=== PATIENT | male | born 1960 | race Caucasian/White ===

== ENCOUNTER 2018-09-17 07:42 | Inpatient (IN) ==
--- NOTE | 2018-08-17 15:33 | PAT Medication Instructions ---
Medication Instructions Date of Service August 17, 2018 Home Medications acetaminophen [Tylenol Extra Strength] 1,000 mg PO Q6H PRN ibuprofen 1,000 mg PO HS PRN multivitamin 1 tab PO QAM niacin 500 mg PO BID omega 5-qlu-wew-fish oil [Fish Oil] 2 cap PO QAM ASK your surgeon for instructions ibuprofen 1,000 mg PO HS PRN STOP taking 2 weeks before surgery omega 2-xws-wyq-fish oil [Fish Oil] 2 cap PO QAM STOP taking 48 hours before surgery niacin 500 mg PO BID DO NOT take the morning of surgery multivitamin 1 tab PO QAM Take morning of surgery With a small sip of water, OTHERWISE NOTHING TO EAT OR DRINK AFTER MIDNIGHT: acetaminophen [Tylenol Extra Strength] 1,000 mg PO Q6H PRN (if needed, may be taken up to four hours before surgery) Other Notes If you have any questions please call us at [phone] or [phone] or [phone] or [phone]
--- NOTE | 2018-08-18 10:36 | Anesthesiology Consultation ---
Date of Service August 18, 2018 Assessment & Plan (1) Encounter for pre-operative examination: Chart Review Chart Review: Acceptable Risk for Surgery and Patient seen in Pre Admission Testing Teaching & Discussion Instructed NPO after midnight before surgery, except medications with 15 cc of water. Medication instructions provided according to the PAT guidelines. History Surgery Operation Date: 09/17/18 10:00 Proposed Procedures p Left Anterior Total Hip Replacement - Sean Sharpe DO Height/Weight Height: 5 ft 9 in Weight: 95.7 kg Allergies Allergy/AdvReac Type Severity Reaction Status Date / Time No Known Allergies Allergy Verified 08/17/18 09:30 Medications Home Medications Medication Instructions Recorded Confirmed Last Taken acetaminophen [Tylenol Extra 1,000 mg PO Q6H PRN 08/17/18 08/17/18 Unknown Strength] ibuprofen 1,000 mg PO HS PRN 08/17/18 08/17/18 Unknown multivitamin 1 tab PO QAM 08/17/18 08/17/18 Unknown niacin 500 mg PO BID 08/17/18 08/17/18 Unknown omega 4-syx-pxc-fish oil [Fish Oil] 2 cap PO QAM 08/17/18 08/17/18 Unknown Past Medical History Medical History Cancer MELANOMA 2003 (LEFT SHOULDER), S/P EXCISION Elevated triglycerides with high cholesterol Osteoarthritis Exercise / Class Metabolic Activity II 4-5 Yardwork/Stairs/Walk up hill (Denies CP or SOB with 1 FOS, limited by hip pain) Past Family History Family History Other No significant family history Past Surgical History Surgical History Ganglion cyst REMOVAL H/O foot surgery RT/LEFT BIG TOE JOINT SURGERY H/O hand surgery RT HAND History of colonoscopy History of skin surgery LEFT SHOULDER (MELANOMA) AND 36 LYMPH NODES REMOVAL History of tooth extraction Past Anesthesia History No Hx of Anesthesia Complications and No Family Hx of Anesthesia Complications History of PONV No Hx of PONV and No Hx of Motion Sickness Social History Smoking Status: Former smoker tobacco type: cigarettes Do You Dip or Chew Tobacco: No (QUIT OVER 30 YEARS AGO) Smoking End Date: QUIT OVER 30 YEARS AGO Hx Alcohol Use: Yes Alcohol type: beer and wine alcohol intake frequency: a few times a week Hx Substance Use: No substance use type: does not use Review of Systems Pt denies any recent chest pain, shortness of breath, palpitations, cough, fever or URI. Physical Exam Vital Signs BP: 156/82 (pt to see PCP prior to surgery, encouraged to discuss HTN at that visit) P: 74bpm SPO2: 96% RA T: 98.7 F R: 16 ENMT Mouth: + dental restorations (one crown) and + chipped teeth (upper L incisor "broken"); no loose teeth Thyromental Distance: > or= 3.5 Finger Breadths (3.5) Mallampati Class: III Neck normal visual inspection; neck extension not limited Respiratory normal respiratory effort Auscultation: lungs clear to auscultation bilaterally Cardiovascular Rate/Rhythm: regular rate and regular rhythm Heart Sounds: no murmur Vessels: no carotid bruit Extremities: no edema Testing Laboratory Results 08/18/18 10:53 08/18/18 10:53 PT 9.9 Seconds (9.0-12.0) 08/18/18 10:53 INR 1.0 (0.9-1.1) 08/18/18 10:53 APTT 27.1 Seconds (21.0-31.0) 08/18/18 10:53 Blood Type AB Negative 08/18/18 10:53 Antibody Screen NEGATIVE 08/18/18 10:53 Electrocardiogram Date: 08/18/18 Findings: + NSR @ (72bpm with PACs) Left axis deviation. iRBBB. Chest X-Ray Date: 08/18/18 FINDINGS: Linear scar formation left mid lung. Postoperative changes left axilla. Lungs are clear. IMPRESSION: Chronic and postoperative changes. No acute process.
--- NOTE | 2018-08-18 11:36 | XRay Report ---
XR chest Pre-admission PA/Lat CLINICAL HISTORY: pat preoperative evaluation COMPARISON STUDY: No previous studies for comparison. FINDINGS: Linear scar formation left mid lung. Postoperative changes left axilla. Lungs are clear. IMPRESSION: Chronic and postoperative changes. No acute process. The above report was generated using voice recognition software. It may contain grammatical, syntax or spelling errors. Electronically signed by: Laron Dawson M.D. 08/18/2018 11:35 AM
[2018-08-18 12:50] LABS: Basophils # (auto) 0.02 K/uL (0-0.2); Basophils % (auto) 0.4 %; Eosinophils # (auto) 0.08 K/uL (0-0.5); Eosinophils % (auto) 1.7 %; Hematocrit (blood only) 40.8 % (42-52); Hemoglobin 14.1 g/dL (14.0-18.0); Immature Granulocytes # (auto) 0.02 K/uL (0.00-0.02); Immature Granulocytes % (auto) 0.4 %; Lymphocytes # (auto) 1.55 K/uL (1.2-3.4); Lymphocytes % (auto) 32.6 %; Mean Corpuscular Hgb Conc 34.6 g/dL (32-36); Mean Corpuscular Volume 92.9 fL (80-100); Mean Platelet Volume 10.3 fL (7.4-10.4); Monocytes # (auto) 0.56 K/uL (0.11-0.59); Monocytes % (auto) 11.8 %; Neutrophils # (auto) 2.53 K/uL (1.4-6.5); Neutrophils % (auto) 53.1 %; Platelet Count 234 K/uL (130-400); RDW Coefficient of Variation 13.3 % (11.5-14.5); RDW Standard Deviation 45.1 fL (36.4-46.3); Red Blood Count 4.39 M/uL (4.7-6.1); White Blood Count 4.76 K/uL (4.8-10.8)
[2018-08-18 13:01] LABS: Partial Thromboplastin Time 27.1 Seconds (21.0-31.0); Prothrombin Time 9.9 Seconds (9.0-12.0)
[2018-08-18 13:02] LABS: BUN Creatinine Ratio 17.1 (10-20); Calcium 8.7 mg/dl (8.5-10.1); Creatinine Clr Calc Pharmacy 103.1 ml/min; Est GFR (African American) 108.7; Est GFR (Non-African American) 93.8; Potassium 4.3 mmol/L (3.5-5.1)
--- NOTE | 2018-09-14 07:29 | History & Physical Report ---
Date of Service September 14, 2018 Assessment & Plan (1) Osteoarthritis of left hip: We will proceed with a left anterior total hip arthroplasty. Postoperatively he will be started on aspirin for DVT prophylaxis and kept overnight in the hospital for postoperative medical management. He plans to use [facility] physical therapy upon discharge. Present on Admission?: Yes History of Present Illness Chief Complaint: Primary osteoarthritis of the left hip Primary Care Provider: Laron Morales MD Pineda is a pleasant 58-year-old male who is been dealing with a 1 year history of increasing left hip and groin pain. X-rays and clinical examination were diagnostic for primary osteoarthritis of the left hip. We have tried cortisone injections which have helped but unfortunately only temporary. After failing conservative treatment, he has elected proceed with a left anterior total hip arthroplasty. Allergies Allergy/AdvReac Type Severity Reaction Status Date / Time No Known Allergies Allergy Verified 08/17/18 09:30 Home Medications Home Medications Medication Instructions Recorded Confirmed Type acetaminophen [Tylenol Extra 1,000 mg PO Q6H PRN 08/17/18 08/17/18 History Strength] ibuprofen 1,000 mg PO HS PRN 08/17/18 08/17/18 History multivitamin 1 tab PO QAM 08/17/18 08/17/18 History niacin 500 mg PO BID 08/17/18 08/17/18 History omega 2-qqn-nqs-fish oil [Fish Oil] 2 cap PO QAM 08/17/18 08/17/18 History Past Med/Surg History Medical History Cancer MELANOMA 2004 (LEFT SHOULDER), S/P EXCISION Elevated triglycerides with high cholesterol Osteoarthritis Surgical History Ganglion cyst REMOVAL H/O foot surgery RT/LEFT BIG TOE JOINT SURGERY H/O hand surgery RT HAND History of colonoscopy History of skin surgery LEFT SHOULDER (MELANOMA) AND 36 LYMPH NODES REMOVAL History of tooth extraction Family History Other No significant family history Social History Preferred Language: Tuval[place] Communication Ability: Effective 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 Beliefs That Will Affect Care: None Current Living Situation: Spouse Other Information That Helps Us Care for You: No Feels Safe at Home: Yes Safety Concerns: Feels Safe At This Time Smoking Status: Former smoker Tobacco Type: cigarettes Do You Dip or Chew Tobacco: No (QUIT OVER 30 YEARS AGO) Smoking End Date: QUIT OVER 30 YEARS AGO Second Hand Exposure: Yes ( A CHILD) Tobacco Cessation Education Requested by Patient: No Hx Alcohol Use: Yes Alcohol type: beer and wine Hx Substance Use: No Review of Systems All systems reviewed & are unremarkable except as noted in HPI & below Physical Exam Constitutional: WD/WN, vitals as above Eyes: PERRL, conjunctivae normal, anicteric sclerae ENMT: external ear and nose normal, oropharynx normal Neck: trachea midline, no thyromegaly Respiratory: normal respiratory effort Cardiovascular: RRR, no murmur, no edema Gastrointestinal (Abdomen): normal bowel sounds, soft, nontender, no hepatosplenomegaly Musculoskeletal: Physical examination of the left hip reveals decreased range of motion with flexion, internal and external rotation. There is significant groin pain with forced internal rotation of the hip his leg lengths are essentially equal. Psychiatric: A+Ox3, euthymic affect Results & Data Diagnostic Findings Radiographs of the left hip and pelvis demonstrate advanced osteoarthritis with joint space narrowing osteophyte formation and ozae-qr-hylx articulation.
[~2018-09-17 07:42] MED LIST: ACETAMINOPHEN 500 MG TAB PO SCH; BUPIVACAINE 0.5 % 5 MG/1 ML PF 10ML VIAL ONE; CEFAZOLIN 2000MG 2,000 MG/15 ML SYR IV SCH; FAMOTIDINE 20 MG TAB PO SCH; GABAPENTIN 300 MG CAP PO SCH; LIDOCAINE HCL 2% 2 ML VIAL/AMP(20MG/ML) INFIL ONE; LR 500ML BOLUS, THEN 15ML/HR IV SCH; LR 60ML/HR IV SCH; MIDAZOLAM HCL 1 MG/ML 2ML VIAL ONE; PROPOFOL IV EMULSION 10 MG/ML 20 ML VIAL IV ONE; ROPIVACAINE 0.5% HCL/PF 150 MG, BUPIVACAINE 0.5% MPF 30 ML, EPINEPHrine 30MG/30ML (OR U... INSTIL SCH; TRANEXAMIC ACID 1,000 MG **IV Intra-op IV SCH; TRANEXAMIC ACID 1,000 MG **IV Pre-op IV SCH; fentaNYL citrate 100 MCG/2 ML VIAL ONE
--- NOTE | 2018-09-17 08:34 | History & Physical Bridge Note ---
Date of Service September 17, 2018 History & Physical Bridge Note I have examined the patient, reviewed the History & Physical and in the interval since the performance of the History & Physical I have noted the following changes of clinical significance: no changes noted
[2018-09-17] MEDS ORDERED: fentaNYL citrate 100 MCG/2 ML VIAL IV PRN (08:39)
[2018-09-17] MEDS ORDERED: ePHEDrine sulfate 50 MG/ML AMP IV PRN (08:39)
[2018-09-17] MEDS ORDERED: ONDANSETRON INJ 2 MG/ML 2 ML VIAL IV PRN ×2 (08:39→13:33)
[2018-09-17] MEDS ORDERED: ATROPINE SULFATE 0.1 MG/ML 10ML SYR IV PRN (08:39)
[2018-09-17] MEDS ORDERED: ORTHO JOINT ANESTHETIC ONE (08:52)
[2018-09-17] MEDS ORDERED: MIDAZOLAM HCL 1 MG/ML 2ML VIAL ONE (09:57)
[2018-09-17] MEDS ORDERED: ONDANSETRON INJ 2 MG/ML 2 ML VIAL ONE (10:16)
[2018-09-17] MEDS ORDERED: PROPOFOL IV EMULSION 10 MG/ML 20 ML VIAL IV ONE (10:56)
--- NOTE | 2018-09-17 12:03 | Operative Report ---
Post Operative Report Pre & Post Diagnosis Operation Date: 09/17/18 10:00 Pre-Op Diagnosis: Left Hip Osteoarthritis Post-Op Diagnosis: Left Hip Osteoarthritis Procedure Operation Date: 09/17/18 10:00 Actual Procedures p Left Anterior Total Hip Arthroplasty--Uncemented(Left) - Sean Sharpe DO Surgeon Sean Sharpe DO Complaint Evaluation Officer Sean Swain PAC Estimated Blood Loss 250 Findings Consistent with Post-Op Diagnosis Specimens Left femoral head Complications none Disposition Disposition: Recovery Room Indications Camron is a pleasant 58-year-old male presented my office with complaints of chronic increasing left hip and groin pain. X-rays and clinical examination were diagnostic for primary osteoarthritis the left hip. After failing conservative treatment, he elected to proceed with a left anterior total hip arthroplasty. Description of Procedure Implants used Biomet Taperloc total hip arthroplasty system with a size 15 standard offset Taperloc stem, a 54 mm G7 cup with 3 screws, an E1 polyethylene liner, a 40 mm ceramic head with a +3 neck. Patient arrived at the hospital for the above procedure. They were seen in the preoperative holding area and the operative extremity was identified and signed. They were given a spinal anesthetic. They were given a preoperative antibiotic and TXA. They were taken back To the operating room and laid on the table in the supine position. The leg was brought out through a Puristst leg positioner. The hip was then prepped and draped in sterile fashion. A timeout was done and the patient in upper extremities properly identified. An anterior approach was used. Dissection was taken down through the fascia and the tensor muscle belly was retracted laterally and the rectus was retracted medially. The circumflex vessels were identified and ligated. The capsule was then incised and tagged for later repair. The femoral neck was then cut and the femoral head was removed. The acetabulum was exposed. Time was spent doing a complete circumferential labral release. Sequential reaming of the acetabulum up to a size 53 reamer was done. Final reamings were done under fluoroscopy to ensure appropriate version. A Biomet 54 mm G7 cup was then impacted into place. I was able to get a fairly good press-fit but not a great press-fit. I decided to place 3 screws for stability. The E1 polyethylene liner was then snapped into place. Surrounding soft tissues were then injected with 100 cc of an orthopedic pain control cocktail. The proximal femur was then exposed. Sequential broaching up to a size 15 broach was done. Off that broach a size 40 head with a +3 neck was trialed. The hip was reduced and fluoroscopic images showed anatomic alignment of the implants in acceptable length. The broach was removed. The final size 15 standard offset Taperloc stem was then impacted into place. A ceramic 40 mm head with a +3 neck was then impacted into place in the hip was reduced. Final fluoroscopic images showed anatomic reduction of the hip. The capsule was then closed with #1 Vicryl suture. A dilute betadyne lavage was then done for 3 minutes. The joint was then irrigated with normal saline solution. The fascia was closed with #1 PDS suture. Skin was closed with 2-0 Vicryl, rodney, and a Glory VAC dressing. The patient was then transferred to a hospital bed and taken to the post anesthesia care unit in stable condition. They tolerated the procedure well. I attest to the content of the Intraoperative Record and any orders documented therein. Any exceptions are noted below.
--- NOTE | 2018-09-17 12:23 | Fluoroscopy Report ---
FL hip LT 1V CLINICAL HISTORY: LEFT ANTERIOR NEISHA COMPARISON STUDY: None. FLUOROSCOPY TIME: 45 seconds. FINDINGS: 2 fluoroscopic spot images of the left hip demonstrate a left total hip arthroplasty. The h ardware is intact. No fracture or dislocation. IMPRESSION: Fluoroscopy provided for left total hip arthroplasty. Electronically signed by: Dave Gibson M.D. 09/17/2018 12:21 PM
--- NOTE | 2018-09-17 12:40 | Anesthesiology Progress Note ---
Date of Service September 17, 2018 Anesthesia Post Procedure Vital Signs Vital Signs: Temp Pulse Resp BP Pulse Ox 09/17/18 12:30 59 L 15 124/70 100 09/17/18 12:20 97.2 F L 61 13 119/76 100 09/17/18 08:21 98.4 F 75 18 145/90 H 95 Transfer of Care Handoff Completed per policy Notes Mental Status: alert / awake / arousable and participated in evaluation Patient Amnestic to Procedure: Yes Nausea / Vomiting: adequately controlled Pain: adequately controlled Airway Patency, RR, SpO2: stable & adequate BP & HR: stable & adequate Hydration State: stable & adequate Neuraxial Anesthesia: was administered and sensory block is resolving Anesthetic Complications: no major complications apparent and Pt Satisfied with anesthetic care
--- NOTE | 2018-09-17 13:03 | XRay Report ---
AP PELVIS, CROSSTABLE LATERAL LEFT HIP History: Left total hip arthroplasty. Degenerative arthritis. Postop. FINDINGS: The patient is status post a left total hip arthroplasty. The hardware is intact. No fractu re or dislocation. Skin rodney are in place. IMPRESSION: Left total hip arthroplasty. No evidence for hardware complication. Electronically signed by: Dave Gibson M.D. 09/17/2018 1:01 PM
[2018-09-17] MEDS ORDERED: BISACODYL 10 MG SUPP PR PRN (13:33)
[2018-09-17] MEDS ORDERED: NALOXONE HCL 0.4 MG/1 ML VIAL/CARP IV PRN (13:33)
[2018-09-17] MEDS ORDERED: HYDROmorphone INJ 0.5 MG/0.5 ML SYR IV PRN (13:33)
[2018-09-17] MEDS ORDERED: MAGNESIUM HYDROXIDE SUSP 30 ML UDC PO PRN (13:33)
[2018-09-17] MEDS ORDERED: METOCLOPRAMIDE HCL INJ 5 MG/ML 2 ML VIAL IV PRN (13:33)
[2018-09-17] MEDS ORDERED: OXYCODONE HCL IR 5 MG TAB (IMMEDIATE RELEASE) PO PRN (13:33)
[2018-09-17] MEDS: SODIUM CHLORIDE 0.9% 1000ML 1,000 ML IV SCH (14:04)
[2018-09-17] MEDS: ACETAMINOPHEN 500 MG TAB PO SCH ×2 (14:05→22:06)
[2018-09-17] MEDS: KETOROLAC 30 MG/ML VIAL IV SCH ×2 (14:07→20:08)
[2018-09-17] MEDS: CEFAZOLIN 2000MG 2,000 MG/15 ML SYR IV SCH (18:24)
[2018-09-17] MEDS: NIACIN 500 MG TAB PO SCH (20:08)
[2018-09-17] MEDS: ASPIRIN 81 MG ECTAB PO SCH (20:08)
[2018-09-17] MEDS: DOCUSATE SODIUM 100 MG CAP PO SCH (20:08)
[2018-09-17] MEDS ORDERED: SENNA 8.6 MG TAB PO SCH (21:00)
[2018-09-18] MEDS: SODIUM CHLORIDE 0.9% 1000ML 1,000 ML IV SCH (00:28)
[2018-09-18] MEDS: KETOROLAC 30 MG/ML VIAL IV SCH ×2 (01:49→07:39)
[2018-09-18] MEDS: CEFAZOLIN 2000MG 2,000 MG/15 ML SYR IV SCH (01:49)
[2018-09-18] MEDS: ACETAMINOPHEN 500 MG TAB PO SCH (05:56)
[2018-09-18 06:35] LABS: Basophils # (auto) 0.01 K/uL (0-0.2); Basophils % (auto) 0.1 %; Eosinophils # (auto) 0.01 K/uL (0-0.5); Eosinophils % (auto) 0.1 %; Hematocrit (blood only) 35.2 % (42-52); Hemoglobin 11.8 g/dL (14.0-18.0); Immature Granulocytes # (auto) 0.05 K/uL (0.00-0.02); Immature Granulocytes % (auto) 0.4 %; Lymphocytes # (auto) 1.06 K/uL (1.2-3.4); Lymphocytes % (auto) 7.9 %; Mean Corpuscular Hgb Conc 33.5 g/dL (32-36); Mean Corpuscular Volume 91.9 fL (80-100); Mean Platelet Volume 10.1 fL (7.4-10.4); Monocytes # (auto) 1.13 K/uL (0.11-0.59); Monocytes % (auto) 8.4 %; Neutrophils # (auto) 11.13 K/uL (1.4-6.5); Neutrophils % (auto) 83.1 %; Platelet Count 193 K/uL (130-400); RDW Coefficient of Variation 13.2 % (11.5-14.5); RDW Standard Deviation 44.3 fL (36.4-46.3); Red Blood Count 3.83 M/uL (4.7-6.1); White Blood Count 13.39 K/uL (4.8-10.8)
[2018-09-18 07:03] LABS: BUN Creatinine Ratio 17.5 (10-20); Calcium 8.1 mg/dl (8.5-10.1); Est GFR (African American) 101.7; Est GFR (Non-African American) 87.8; Potassium 4.2 mmol/L (3.5-5.1)
[2018-09-18] MEDS: NIACIN 500 MG TAB PO SCH (08:40)
[2018-09-18] MEDS: DOCUSATE SODIUM 100 MG CAP PO SCH (08:40)
[2018-09-18] MEDS: ASPIRIN 81 MG ECTAB PO SCH (08:40)
[2018-09-18] MEDS ORDERED: MULTIVITAMIN TAB PO SCH ×2 (09:00)
[2018-09-18] MEDS ORDERED: OMEGA-3 (PURIFIED FISH OIL) 1 GM CAP PO SCH (09:00)
--- NOTE | 2018-09-18 09:13 | Orthopedic Progress Note ---
Date of Service September 18, 2018 Assessment & Plan (1) Osteoarthritis of left hip: Overall is doing very well. Is not have much pain in the left hip. He is on aspirin for DVT prophylaxis. He will be seen by physical therapy today for ambulation. We can discharge him to home later today. He plans to use [facility] upon discharge. Present on Admission?: Yes Subjective Camron was seen and examined at bedside this morning. Overall he is doing very well. He is Silvio been up and ambulating on his hip. He is able to get some sleep last night. He has no complaints. Physical Exam Musculoskeletal: On physical examination of the left hip, the Glory VAC dressing is to suction. His leg lengths are equal. He has active range of motion of his left ankle. Results & Data Vital Signs (Past 12 Hours) Vital Signs Temp Pulse Resp BP Pulse Ox 09/18/18 07:50 36.8 C 78 20 125/78 97 09/18/18 04:01 36.9 C 80 18 117/71 96 09/17/18 23:40 36.7 C 88 18 163/68 H 96 Laboratory Results H & H 08/18/18 09/18/18 Range/Units 10:53 06:21 Hgb 14.1 11.8 L (14.0-18.0) g/dL Hct 40.8 L 35.2 L (42-52) % Coagulation 08/18/18 Range/Units 10:53 INR 1.0 (0.9-1.1) Diagnostic Findings Postoperative x-rays of the left hip show the prosthesis to be in anatomic alignment without any evidence of fracture, dislocation, or loosening.
--- NOTE | 2018-09-18 09:14 | Discharge Summary ---
Date of Service September 18, 2018 Admission HPI Per Admitting Provider Pineda is a pleasant 58-year-old male who is been dealing with a 1 year history of increasing left hip and groin pain. X-rays and clinical examination were diagnostic for primary osteoarthritis of the left hip. We have tried cortisone injections which have helped but unfortunately only temporary. After failing conservative treatment, he has elected proceed with a left anterior total hip arthroplasty. Specialty Data Orthopedic H & H 08/18/18 09/18/18 Range/Units 10:53 06:21 Hgb 14.1 11.8 L (14.0-18.0) g/dL Hct 40.8 L 35.2 L (42-52) % Coagulation 08/18/18 Range/Units 10:53 INR 1.0 (0.9-1.1) Discharge Data Consultations 09/18/18 08:00 Consult Case Management - Discharge Planning Routine Procedures Performed Operation Date: 09/17/18 10:00 Actual Procedures p Left Anterior Total Hip Arthroplasty--Uncemented(Left) - Sean Sharpe DO Hospital Course (1) Osteoarthritis of left hip: On September 17, 2018 Camron arrived at [facility] and underwent a left anterior total hip arthroplasty without complication. He had a spinal anesthetic. Postoperatively he was started on aspirin for DVT prophylaxis and discharged to general orthopedic floors. His hospital course is uneventful. On postop day #1 his H&H was stable and his pain was well controlled. He is able to ambulate well with physical therapy. He was then discharged home with [facility]. He will follow-up with orthopedics in 2 weeks. Discharge Instructions Home Medications Medication Instructions Recorded Confirmed acetaminophen [Tylenol Extra 1,000 mg PO Q6H PRN 08/17/18 09/17/18 Strength] ibuprofen 1,000 mg PO HS PRN 08/17/18 09/17/18 multivitamin 1 tab PO QAM 08/17/18 09/17/18 niacin 500 mg PO BID 08/17/18 09/17/18 omega 0-soa-cpn-fish oil [Fish Oil] 2 cap PO QAM 08/17/18 09/17/18 Previous Rx's Medication Instructions Recorded aspirin [Ecotrin Low Strength] 81 mg PO BID #84 tab 09/18/18 hydrocodone-acetaminophen 1 tab PO Q6H PRN #40 tab 09/18/18
== END 2018-09-18 12:02 | disposition home health service (06) | DRG 470 ==
LOC: ASU 07:42 → 3E 12:54